=== PATIENT | female | born 1945 | race African-American/Black ===

== ENCOUNTER 2020-03-20 14:10 | Observation (INO) ==
[2020-03-20 15:27] LABS: Albumin 3.8 G/DL (3.4-5.0); Bilirubin,Total 0.6 MG/DL (0.2-1.0); Calcium 10.1 MG/DL (8.5-10.1); Osmolality,Calculated 269.5 MOS/KG (273-304); Total Protein 9.1 G/DL (6.4-8.3)
[2020-03-20 16:25] LABS: Basophils # 0.1 10*3/uL (0.0-0.2); Basophils % 0.4 % (0.0-0.8); Eosinophils # 0.1 10*3/uL (0.0-0.87); Eosinophils % 0.9 % (0.00-10.9); Hematocrit 39.1 VOL% (35.7-47.0); Hemoglobin 13.1 GM/DL (12.0-16.0); Immature Granulocytes % 0.5 %; Immature Granulocytes Absolute 0.07 #; Lymphocytes # 2.1 10*3/uL (1.4-4.0); Lymphocytes % 15.2 % (21.3-54.2); Mean Corpuscular HGB Conc 33.5 GM/DL (32-36); Mean Corpuscular Volume 88.1 FL (87-102); Mean Platelet Volume 12.4 FL (9.6-12.0); Monocytes % 9.1 % (1.7-12.7); Neutrophils % 73.9 % (38.7-73.9); Platelet Count 171 T/CUMM (130-400); Red Blood Count 4.44 MC/CUMM (3.8-5.5); Red Cell Distribution Width 14.1 % (9.3-17.3)
[2020-03-20] MEDS ORDERED: NITROGLYCERIN SL 0.4 MG TABLET SL STA (17:56)
[2020-03-20] MEDS ORDERED: ASPIRIN CHEW 81 MG TABLET PO STA (17:56)
[2020-03-20] MEDS ORDERED: ONDANSETRON 4 MG/2 ML VIAL IV PRN (21:00)
[2020-03-20] MEDS ORDERED: ACETAMINOPHEN 325 MG TABLET PO PRN (21:00)
[2020-03-20] MEDS ORDERED: NITROGLYCERIN SL 0.4 MG TABLET SL PRN (21:00)
[2020-03-20] MEDS: SODIUM CHLORIDE 0.9% 1,000 ML IV SCH (23:09)
[2020-03-21 05:37] LABS: Basophils % 0.3 % (0.0-0.8); Eosinophils # 0.3 10*3/uL (0.0-0.87); Eosinophils % 2.5 % (0.00-10.9); Hematocrit 33.2 VOL% (35.7-47.0); Immature Granulocytes % 0.6 %; Immature Granulocytes Absolute 0.07 #; Lymphocytes # 2.4 10*3/uL (1.4-4.0); Lymphocytes % 19.8 % (21.3-54.2); Mean Corpuscular HGB Conc 33.1 GM/DL (32-36); Mean Corpuscular Volume 88.1 FL (87-102); Mean Platelet Volume 10.9 FL (9.6-12.0); Monocytes % 10.7 % (1.7-12.7); Neutrophils % 66.1 % (38.7-73.9); Platelet Count 269 T/CUMM (130-400); Red Blood Count 3.77 MC/CUMM (3.8-5.5); Red Cell Distribution Width 14.2 % (9.3-17.3); White Blood Count 12.2 T/CUMM (4-12)
[2020-03-21] MEDS ORDERED: traMADol 50 MG TABLET PO PRN (05:47)
[2020-03-21 05:54] LABS: Calcium 9.3 MG/DL (8.5-10.1); Osmolality,Calculated 276.8 MOS/KG (273-304)
[2020-03-21] MEDS ORDERED: LEVOTHYROXINE 100 MCG TABLET PO SCH (06:30)
[2020-03-21] MEDS: SODIUM CHLORIDE 0.9% 1,000 ML IV SCH ×2 (08:31→16:29)
[2020-03-21] MEDS ORDERED: amLODIPine 5 MG TABLET PO SCH (09:00)
[2020-03-21] MEDS ORDERED: LINACLOTIDE 145 MCG CAPSULE PO SCH (09:00)
[2020-03-21] MEDS ORDERED: ASPIRIN 325 MG TABLET PO SCH (09:00)
[2020-03-21] MEDS ORDERED: ASPIRIN EC 81 MG TABLET PO SCH (09:00)
[2020-03-21] MEDS ORDERED: MULTIVITAMIN (CENTRUM) TABLET PO SCH (09:00)
[2020-03-21] MEDS ORDERED: FAMOTIDINE 20 MG TABLET PO SCH (09:00)
[2020-03-21] MEDS ORDERED: INDAPAMIDE 2.5 MG TABLET PO SCH (09:00)
[2020-03-21] MEDS ORDERED: PANTOPRAZOLE 40 MG TABLET PO SCH (09:00)
[2020-03-21] MEDS ORDERED: DICYCLOMINE 10 MG CAPSULE PO SCH (09:00)
[2020-03-21] MEDS ORDERED: POTASSIUM CHLORIDE 20 MEQ TABLET PO PRN (09:51)
[2020-03-21] MEDS ORDERED: POTASSIUM CHLORIDE 20 MEQ TABLET PO ONE (09:51)
[2020-03-21] MEDS ORDERED: KETOROLAC 30 MG/1 ML VIAL IV ONE ×2 (10:01→14:00)
[2020-03-21] MEDS ORDERED: methylPREDNISolone SOD SUC 40 MG/1 ML VIAL IV ONE (13:00)
[2020-03-21 15:57] VITALS: BP 107/56
== END 2020-03-21 17:35 | disposition home or self-care (01) ==
LOC: N.EDINP 14:10 → N.ED 14:10 → N.EDINP 20:45 → N.TELES 20:49
PROVIDERS: ADMIT Family Medicine; ATTEND Family Medicine